=== PATIENT | female | born 1965 | race Caucasian/White ===

== ENCOUNTER 2019-06-05 15:03 | Emergency (ER) | payer OTHER ==
--- NOTE | 2019-06-05 15:39 | RAD REPORT ---
EXAM DESCRIPTION: RAD - Chest Single View - 06/05/2019 3:31 pm CLINICAL HISTORY: Dizziness, weakness, shortness of breath COMPARISON: None. TECHNIQUE: AP portable chest image was obtained 1528 hours . FINDINGS: Lungs are clear. Focal density in the medial right base is believed to be a prominent adam cardial fat pad. Small hiatal hernia is suspected as well. Heart and vasculature are normal. No measu rable pleural effusion and no pneumothorax. No acute bony abnormality seen. No acute aortic findings suspected. IMPRESSION: No acute cardiopulmonary process.
--- NOTE | 2019-06-05 15:52 | RAD REPORT ---
EXAM DESCRIPTION: CT - Head Brain Wo Cont - 06/05/2019 3:37 pm CLINICAL HISTORY: Headache, double vision, dizziness, history of aneurysm repair 2002 and tumor bernadine jaime 2018 COMPARISON: None. TECHNIQUE: Axial 5 mm thick images of the head were obtained without IV contrast. All CT scans are performed using dose optimization technique as appropriate and may include automated exposure control or mA/KV adjustment according to patient size. FINDINGS: No intracranial hemorrhage, mass, edema or shift of mid-line structures. No acute cortical based infarction, cortical edema or sulcal effacement. No abnormal extra-axial fluid collections. Ve ntricles are normal. [place] artifact is present from aneurysm clip the right-side craig of [place]. Po stsurgical changes are present at the anterior left frontal bone with additional right frontotemporal skull postsurgical change. Minimal focus of encephalomalacia seen in the anterior left frontal lobe. Mastoid air cells are clear. Mucosal thickening with air-fluid level causes near complete opacificati on of the left maxillary sinus. Sinus wall is slightly thickened compared to the right indicating a c omponent of chronic sinusitis as well. Physiologic calcifications are present. No acute bony findings. IMPRESSION: No acute intracranial finding seen. Postsurgical changes to the skull are present as detailed with aneurysm clip right-side craig of [place]. Acute and chronic sinusitis in the left maxillary sinus.
[2019-06-05] MEDS ORDERED: MORPHINE 4 MG/ML SYR ONE (16:02)
[2019-06-05] MEDS ORDERED: ONDANSETRON 4 MG/2 ML VIAL ONE (16:02)
[2019-06-05 16:08] LABS: Absolute Lymphocytes (CBC) 2.3 K/uL (0.7-4.9); Basophils % 1.1 % (0-1.3); Hematocrit 41.5 % (39.6-49.0); Lymphocytes % 25.6 % (15.3-44.8); RBC Red Blood Cell Count 4.39 M/uL (4.33-5.43)
--- NOTE | 2019-06-05 16:09 | EKG ---
Test Date: 2019-06-05 Test Time: 15:08:05 Breakfast Manager: TRANG MEASUREMENT RESULTS: Intervals: Rate: 72 WV: 184 QRSD: 78 QT: 380 QTc: 416 Carey: P: 75 WV: 184 QRS: 58 T: 38 INTERPRETIVE STATEMENTS: Normal sinus rhythm Low voltage QRS Cannot rule out Anterior infarct, age undetermined Abnormal ECG No previous ECG available for comparison Electronically Signed On 06-05-19 16:09:12 CDT by Kavon You
[2019-06-05 16:10] LABS: Protime INR 0.87
[2019-06-05 16:30] LABS: ALT/SGPT 21 U/L (12-78); AST/SGOT 9 U/L (15-37); Albumin 3.1 g/dL (3.4-5.0); Alkaline Phosphatase 88 U/L (45-117); BUN Blood Urea Nitrogen 13 mg/dL (7-18); Bicarbonate 29 mmol/L (21-32); Bilirubin Direct < 0.1 mg/dL (0-0.2); Bilirubin Total 0.2 mg/dL (0.2-1.0); Glucose Level 81 mg/dL (74-106); Magnesium 2.4 mg/dL (1.8-2.4); NT PRO-BNP 37 pg/mL (<125); Potassium 4.5 mmol/L (3.5-5.1); Protein, Total 6.9 g/dL (6.4-8.2); Sodium Level 142 mmol/L (136-145); Troponin (Emerg Dept Use Only) < 0.02 ng/mL (0.0-0.045)
--- NOTE | 2019-06-05 17:14 | RAD REPORT ---
EXAM DESCRIPTION: CT - Head angio - 06/05/2019 4:50 pm CLINICAL HISTORY: Vision, dizziness, headache, history of intracranial aneurysm TECHNIQUE: During dynamic enhancement using nonionic IV contrast, axial 1 millimeter thick images of the head were obtained. Sagittal and axial reconstruction images were generated and reviewed. All CT scans are performed using dose optimization technique as appropriate and may include automated exposure control or mA/KV adjustment according to patient size. COMPARISON: CT head same date FINDINGS: No aneurysm is identifiable. The patient has an aneurysm clip along the superior margin o f the right ICA MCA junction. Major venous sinuses are patent. No internal carotid artery acute finding identifiable. Patient has a large anterior communicating art puja and a dominant A1 segment of the right anterior cerebral artery. The left A1 segment is absent or very small. This is an anatomic variant. The patient has a large left-sided posterior communicating artery with a smaller absent P1 segment of the posterior cerebral artery. This is also a normal anato janell variant. Mild tortuosity of the vertebrobasilar vasculature noted. No stenosis or acute finding i dentifiable. No vascular malformation. No vasculitis or acute finding identifiable. IMPRESSION: CT angio head imaging shows no aneurysm, vascular malformation or acute finding.
--- NOTE | 2019-06-05 18:43 | EDPHYS ---
Physician Documentation [facility] Name: Alexandria Jay Age: 53 yrs Sex: Female : 1965 Arrival Date: 06/05/2019 Time: 15:07 Bed 5 Private MD: ED Physician Luis Jeter HPI: 06/05 16:29 This 53 yrs old Female presents to ER via EMS with complaints of Headache, pm1 Dizziness. 16:29 The patient complains of pain to the forehead and left eye. The patient describes the pm1 headache as aching. Onset: The symptoms/episode began/occurred yesterday. Associated signs and symptoms: Pertinent positives: dizziness, runny nose. Vomit x 1 yesterday. double vision yesterday that improves with keeping one eye closed. Patient seen 1 week ago for cough and given azithromycin for 5 days. Patient reports cough resolved but has continued runny nose, Pertinent negatives: fever, nausea. Severity of symptoms: in the emergency department the pain is unchanged. Headache History: The patient has had previous headaches and this one is similar to previous episodes. The symptoms are alleviated by nothing. the symptoms are aggravated by lights. The patient has experienced similar episodes in the past, several times, history of headaches post aneurysm about 2 years ago. The patient has been recently seen by a physician: cough, cold, congestion. 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 - Social history:: Smoking status: Patient/guardian denies using tobacco, the patient reports quitting approximately 6 years ago. - Ebola Screening: : Patient negative for fever greater than or equal to 101.5 degrees Fahrenheit, and additional compatible Ebola Virus Disease symptoms Patient denies exposure to infectious person Patient denies travel to an Ebola-affected area in the 21 days before illness onset No symptoms or risks identified at this time. ROS: 16:29 Constitutional: Negative for fever, chills, and weight loss, ENT: Negative for injury, pm1 pain, and discharge, Neck: Negative for injury, pain, and swelling, Cardiovascular: Negative for chest pain, palpitations, and edema, Respiratory: Negative for shortness of breath, cough, wheezing, and pleuritic chest pain, Back: Negative for injury and pain. 16:29 : Negative for injury, bleeding, discharge, and swelling, MS/Extremity: Negative for injury and deformity, Skin: Negative for injury, rash, and discoloration. 16:29 Eyes: Positive for double vision yesterday that resolved. 16:29 Abdomen/GI: Positive for nausea, vomit x 1 yesterday, Negative for abdominal pain, diarrhea, constipation. 16:29 Neuro: Positive for headache, Negative for numbness, tingling, weakness. Exam: 16:29 Constitutional: This is a well developed, well nourished patient who is awake, alert, pm1 and in no acute distress. Head/Face: Normocephalic, atraumatic. Eyes: Pupils equal round and reactive to light, extra-ocular motions intact. Lids and lashes normal. Conjunctiva and sclera are non-icteric and not injected. Cornea within normal limits. Periorbital areas with no swelling, redness, or edema. ENT: Nares patent. No nasal discharge, no septal abnormalities noted. Tympanic membranes are normal and external auditory canals are clear. Oropharynx with no redness, swelling, or masses, exudates, or evidence of obstruction, uvula midline. Mucous membranes moist. Neck: Trachea midline, no thyromegaly or masses palpated, and no cervical lymphadenopathy. Supple, full range of motion without nuchal rigidity, or vertebral point tenderness. No Meningismus. Chest/axilla: Normal chest wall appearance and motion. Nontender with no deformity. No lesions are appreciated. Cardiovascular: Regular rate and rhythm with a normal S1 and S2. No gallops, murmurs, or rubs. Normal PMI, no JVD. No pulse deficits. Respiratory: Lungs have equal breath sounds bilaterally, clear to auscultation and percussion. No rales, rhonchi or wheezes noted. No increased work of breathing, no retractions or nasal flaring. Abdomen/GI: Soft, non-tender, with normal bowel sounds. No distension or tympany. No guarding or rebound. No evidence of tenderness throughout. Back: No spinal tenderness. No costovertebral tenderness. Full range of motion. Skin: Warm, dry with normal turgor. Normal color with no rashes, no lesions, and no evidence of cellulitis. MS/ Extremity: Pulses equal, no cyanosis. Neurovascular intact. Full, normal range of motion. 16:29 Neuro: Orientation: is normal, Mentation: is normal, Cranial nerves: CN II- XII are normal as tested, Cerebellar function: normal finger to nose testing, Motor: is normal, moves all fours, Sensation: is normal, no obvious gross deficits. Vital Signs: 15:15 BP 124 / 80; Pulse 95; Resp 16; Temp 98.0; Pulse Ox 95% on R/A; Weight 72.57 kg; Height iw 5 ft. 2 in. (157.48 cm); Pain 6/10; 16:03 BP 119 / 89; Pulse 67; Resp 18 S; Pulse Ox 97% ; Pain 6/10; aa5 17:22 BP 104 / 67; Pulse 57; Resp 14; Pulse Ox 92% ; bp 18:15 BP 108 / 67; Pulse 58; Resp 14; Temp 98; Pulse Ox 95% ; bp 19:13 BP 104 / 64; Pulse 62; Resp 16 S; Temp 97.4(O); Pulse Ox 100% on R/A; bb 15:15 Body Mass Index 29.26 (72.57 kg, 157.48 cm) iw MDM: 15:08 Patient medically screened. pm1 16:27 Data reviewed: vital signs. Data interpreted: Pulse oximetry: on room air is 97 %. pm1 Interpretation: normal. 18:39 Counseling: I had a detailed discussion with the patient and/or guardian regarding: the pm1 historical points, exam findings, and any diagnostic results supporting the discharge/admit diagnosis, lab results, radiology results, the need for outpatient follow up, to return to the emergency department if symptoms worsen or persist or if there are any questions or concerns that arise at home. 06/05 15:19 Order name: Basic Metabolic Panel; Complete Time: 16:32 pm1 06/05 15:19 Order name: CBC with Diff; Complete Time: 16:12 pm1 06/05 15:19 Order name: LFT's; Complete Time: 16:32 pm1 06/05 15:19 Order name: Magnesium; Complete Time: 16:32 pm1 06/05 15:19 Order name: NT PRO-BNP; Complete Time: 16:32 pm1 06/05 15:19 Order name: PT-INR; Complete Time: 16:13 pm1 06/05 15:17 Order name: CT Head Brain wo Cont; Complete Time: 18:16 pm1 06/05 15:19 Order name: Troponin (emerg Dept Use Only); Complete Time: 16:32 pm1 06/05 15:19 Order name: XRAY Chest (1 view); Complete Time: 16:32 pm1 06/05 15:49 Order name: CT Head Angio; Complete Time: 18:16 pm1 06/05 15:19 Order name: EKG; Complete Time: 15:21 pm1 06/05 15:19 Order name: Cardiac monitoring; Complete Time: 15:21 pm1 06/05 15:19 Order name: EKG - Nurse/Tech; Complete Time: 15:21 pm1 06/05 15:19 Order name: IV Saline Lock; Complete Time: 15:37 pm1 06/05 15:19 Order name: Labs collected and sent; Complete Time: 15:37 pm1 06/05 15:19 Order name: O2 Per Protocol; Complete Time: 15:20 pm1 06/05 15:19 Order name: O2 Sat Monitoring; Complete Time: 15:20 pm1 06/05 15:47 Order name: Labs - recollect needed; Complete Time: 16:06 bd Administered Medications: 16:06 Drug: morphine 4 mg Route: IVP; Site: right antecubital; aa5 17:00 Follow up: Response: Pain is decreased bp 16:06 Drug: Zofran 4 mg Route: IVP; Site: right antecubital; aa5 17:00 Follow up: Response: Nausea is decreased bp 18:55 Drug: morphine 2 mg Route: IVP; Site: right antecubital; bp 19:13 Follow up: Response: No adverse reaction bb 18:55 Drug: Rocephin 1 grams Route: IV; Rate: calculated rate; Site: right antecubital; bp 19:14 Follow up: IV Status: Completed infusion; IV Intake: 10ml bb Disposition: 06/05/19 18:41 Discharged to Home. Impression: Acute sinusitis. - Condition is Stable. - Discharge Instructions: Sinusitis, Adult. - Prescriptions for Fiorinal 50- 325-40 mg Oral Capsule - take 1 capsule by ORAL route every 4 hours As needed - not to exceed 6 capsules per day; 20 capsule. Augmentin 875- 125 mg Oral Tablet - take 1 tablet by ORAL route every 12 hours for 10 days; 20 tablet. - Work release form, Medication Reconciliation Form, Thank You Letter, Antibiotic Education, Prescription Opioid Use form. - Follow up: Emergency Department; When: As needed; Reason: Worsening of condition. Follow up: Private Physician; When: 2 - 3 days; Reason: Recheck today's complaints, Continuance of care, Re-evaluation by your physician. - Problem is new. - Symptoms have improved. Signatures: Dispatcher [employer] EDMS Charlotte Boo Brenda, RN RN bb Maria M Meneses RN RN iw Bre Burt RN RN aa5 Donovan Tapia NP MACHINE I CUTTER pm1 David Martinez RN RN bp Corrections: (The following items were deleted from the chart) 20:18 18:41 06/05/2019 18:41 Discharged to Home. Impression: Acute sinusitis. Condition is bb Stable. Discharge Instructions: General Headache Without Cause. Prescriptions for Fiorinal 50-325-40 mg Oral Capsule - take 1 capsule by ORAL route every 4 hours As needed - not to exceed 6 capsules per day; 20 capsule. and Forms are Medication Reconciliation Form, Thank You Letter, Antibiotic Education, Prescription Opioid Use. Follow up: Emergency Department; When: As needed; Reason: Worsening of condition. Follow up: Private Physician; When: 2 - 3 days; Reason: Recheck today's complaints, Continuance of care, Re-evaluation by your physician. Problem is new. Symptoms have improved. pm1
--- NOTE | 2019-06-05 18:43 | ER ---
Nurse's Notes [facility] Name: Alexandria Jay Age: 53 yrs Sex: Female : 1965 Arrival Date: 06/05/2019 Time: 15:07 Bed 5 Private MD: Diagnosis: Acute sinusitis Presentation: 06/05 15:08 Presenting complaint: Patient states: headache, double vision started while driving iw yesterday, also had dizziness, felt faint, hears a popping sound in right occipital area, hx of brain aneurysm in 2001, had a brain tumor removed in 2017. Transition of care: patient was not received from another setting of care. Onset of symptoms was June 04, 2019. Risk Assessment: Do you want to hurt yourself or someone else? Patient reports no desire to harm self or others. Initial Sepsis Screen: Does the patient meet any 2 criteria? No. Patient's initial sepsis screen is negative. Does the patient have a suspected source of infection? No. Patient's initial sepsis screen is negative. Care prior to arrival: None. 15:08 Method Of Arrival: EMS: [facility] iw 15:08 Acuity: AILYN 3 Triage Assessment: 15:10 Headache History: The patient has had previous headaches and this one is similar to bp previous episodes. General: Appears in no apparent distress. comfortable, Behavior is cooperative, appropriate for age, anxious. Pain: Complains of pain in head Pain currently is 10 out of 10 on a pain scale. Pain began 1 day ago. Also complains of no other associated symptoms. EENT: No deficits noted. Neuro: Reports diplopia. Cardiovascular: No deficits noted. Respiratory: No deficits noted. GI: No signs and/or symptoms were reported involving the gastrointestinal system. : No signs and/or symptoms were reported regarding the genitourinary system. Derm: No deficits noted. Musculoskeletal: No deficits noted. 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 - Social history:: Smoking status: Patient/guardian denies using tobacco, the patient reports quitting approximately 6 years ago. - Ebola Screening: : Patient negative for fever greater than or equal to 101.5 degrees Fahrenheit, and additional compatible Ebola Virus Disease symptoms Patient denies exposure to infectious person Patient denies travel to an Ebola-affected area in the 21 days before illness onset No symptoms or risks identified at this time. Screenin:19 Abuse screen: Denies threats or abuse. Denies injuries from another. Nutritional bp screening: No deficits noted. Tuberculosis screening: No symptoms or risk factors identified. Fall Risk None identified. Assessment: 15:10 General: SEE TRIAGE NOTE. Pain: Complains of pain in head. bp 15:58 Reassessment: Patient is alert, oriented x 3, equal unlabored respirations, skin aa5 warm/dry/pink. Pt notified of wait time for lab results, pt verbalized understanding. . 16:05 Reassessment: Patient is alert, oriented x 3, equal unlabored respirations, skin aa5 warm/dry/pink. 17:22 Reassessment: ALL CURRENT ORDERS COMPLETED, RESULTS PENDING FOR DISPO. bp 18:15 Reassessment: ALL CURRENT ORDERS COMPLETED AND RESULTED, DISPO PENDING. bp 19:11 Reassessment: pt is A\T\O x 4, resp unlabored, verbalized understanding of and agrees to bb plan of care discharge instructions given pt awaiting transportation home is on the phone now. 20:17 Reassessment: pt is A\T\O x 4, resp unlabored, verbalized understanding of and agrees to bb plan of care discharge instructions given pt assisted to exit via wheelchair awaiting transportation home her friend is on the way now. Vital Signs: 15:15 BP 124 / 80; Pulse 95; Resp 16; Temp 98.0; Pulse Ox 95% on R/A; Weight 72.57 kg; Height iw 5 ft. 2 in. (157.48 cm); Pain 6/10; 16:03 BP 119 / 89; Pulse 67; Resp 18 S; Pulse Ox 97% ; Pain 6/10; aa5 17:22 BP 104 / 67; Pulse 57; Resp 14; Pulse Ox 92% ; bp 18:15 BP 108 / 67; Pulse 58; Resp 14; Temp 98; Pulse Ox 95% ; bp 19:13 BP 104 / 64; Pulse 62; Resp 16 S; Temp 97.4(O); Pulse Ox 100% on R/A; bb 15:15 Body Mass Index 29.26 (72.57 kg, 157.48 cm) ED Course: 15:07 Patient arrived in ED. iw 15:08 Donovan Tapia, PIN PULLER is PHCP. pm1 15:08 Luis Jeter MD is Attending Physician. pm1 15:11 Triage completed. iw 15:13 EKG done, by process control technician. reviewed by Donovan Tapia NP. sm3 15:16 Arm band placed on. iw 15:17 David Martinez, RN is Primary Nurse. bp 15:19 Patient has correct armband on for positive identification. Bed in low position. Call bp light in reach. Side rails up X2. 15:34 XRAY Chest (1 view) In Process Unspecified. EDMS 15:39 CT Head Brain wo Cont In Process Unspecified. EDMS 15:51 Radiology exam delayed due to lab results not completed at this time. (BUN/Creatinine) sj IV insertion attempt and/or patient not having appropriate IV at this time. 15:58 Lab(s) recollected, by me, sent to lab. Inserted saline lock: 20 gauge in right aa5 antecubital area, using aseptic technique. Blood collected. 16:27 Radiology exam delayed due to lab results not completed at this time. (BUN/Creatinine). nj 16:50 CT completed. Patient tolerated procedure well. Patient moved to CT. Patient moved back pa from CT. 16:53 CT Head Angio In Process Unspecified. EDMS 19:14 No provider procedures requiring assistance completed. IV discontinued, intact, bb bleeding controlled, No redness/swelling at site. Pressure dressing applied. Administered Medications: 16:06 Drug: morphine 4 mg Route: IVP; Site: right antecubital; aa5 17:00 Follow up: Response: Pain is decreased bp 16:06 Drug: Zofran 4 mg Route: IVP; Site: right antecubital; aa5 17:00 Follow up: Response: Nausea is decreased bp 18:55 Drug: morphine 2 mg Route: IVP; Site: right antecubital; bp 19:13 Follow up: Response: No adverse reaction bb 18:55 Drug: Rocephin 1 grams Route: IV; Rate: calculated rate; Site: right antecubital; bp 19:14 Follow up: IV Status: Completed infusion; IV Intake: 10ml bb Intake: 19:14 IV: 10ml; Total: 10ml. bb Outcome: 18:41 Discharge ordered by . pm1 19:14 Discharged to home ambulatory, with friend. bb 19:14 Condition: stable 19:14 Discharge instructions given to patient, Instructed on discharge instructions, follow up and referral plans. medication usage, Demonstrated understanding of instructions, follow-up care, medications, Prescriptions given X 2. 20:18 Patient left the ED. bb Signatures: Dispatcher [employer] EDMS Shayla Chávez Brenda RN RN Maria M Lassiter RN RN Bre Ceron RN RN aa5 Donovan Tapia NP PIN PULLER pm1 Niraj Thomason Brian, RN RN Aretha Sanches sm3 Corrections: (The following items were deleted from the chart) 19:17 19:11 Reassessment: pt is A\T\O x 4, resp unlabored, verbalized understanding of and bb agrees to plan of care discharge instructions given pt ambulated with steady gait to exit. bb
[2019-06-05] MEDS ORDERED: MORPHINE 2 MG/ML SYR ONE (18:49)
[2019-06-05] MEDS ORDERED: CEFTRIAXONE/SWI 1gm 1 GM/10 ML SYR ONE (18:49)
== END 2019-06-05 20:18 | disposition home or self-care (01) ==
LOC: ER 15:03 → EDSEX 15:03 → ER 20:18
DX: J01.90 Acute sinusitis, unspecified (principal); D64.9 Anemia, unspecified
CPT/HCPCS: 93005; 85025; 80048; 36415; 83735; 85610; 80076; 84484; 83880; 70450; 70496; 71045; Q9967; J2270; J0696; J2405